=== PATIENT | female | born 1970 | race Caucasian/White ===

== ENCOUNTER 2019-10-21 15:04 | Emergency (ER) | payer BC ==
--- NOTE | 2019-10-21 16:16 | EDM.PDOC ---
ED HPI GENERAL MEDICAL PROBLEM - General Chief Complaint: Chest Pain Stated Complaint: PAIN IN RT SIDE RIBS, BLOATING Time Seen by Provider: 10/21/19 15:56 Source of Information: Reports: Patient History Limitations: Reports: No Limitations - History of Present Illness INITIAL COMMENTS - FREE TEXT/NARRATIVE: Patient presents describing a variety of painful areas likely secondary to some type of unwitnessed syncope/falling event tonight of October 17 into October 18. She has been treated for hypertension and has been on lisinopril for approximately one month. Her blood pressure was not completely controlled and she is now taking a double dose. When she awoke night into Tuesday morning, she felt dizzy and off balance and her pressure by home measurements at that time wa s 77 systolic. She does not recall what her pulse rate might of been. Because of how she felt, she stopped taking any additional lisinopril. She previously was on hydrochlorothiazide as her antihypertensive but has not used that since June of this year. Duration: Day(s): (3) Location: Reports: Face, Chest, Pelvis Quality: Reports: Ache, Dull Severity: Moderate Improves with: Reports: None Worsens with: Reports: Movement Associated Symptoms: Reports: No Other Symptoms - Related Data Allergies Allergy/AdvReac Type Severity Reaction Status Date / Time No Known Allergies Allergy Verified 10/21/19 16:15 Home Meds: Home Meds Adalimumab [Humira Pen] 1 injection SQ ASDIRECTED 10/21/19 [History] Lisinopril/Hydrochlorothiazide [Lisinopril-Hctz 20-12.5 mg Tab] 1 tab PO DAILY 10/21/19 [History] ED ROS GENERAL - Review of Systems Review Of Systems: See Below Constitutional: Reports: No Symptoms HEENT: Reports: Other (Left periorbital minor pain and bruising.) Respiratory: Reports: No Symptoms Cardiovascular: Reports: No Symptoms, Chest Pain (Pain on palpation over right lower lateral and anterior ribs.) GI/Abdominal: Reports: Abdominal Pain Musculoskeletal: Reports: Other (Right chest wall pain) Skin: Reports: Other (Right hip region ecchymosis.) ED EXAM, UPPER BACK/NECK PAIN - Physical Exam Exam: See Below Exam Limited By: No Limitations General Appearance: Alert Head Exam: Facial Ecchymosis Neck Exam: Full Range of Motion GI/Abdominal: Guarding, Tender. No: Rigid, Rebound Back Exam: No: CVA Tenderness (R), Vertebral Tenderness EKG INTERPRETATION EKG Date: 10/21/19 Time: 16:28 Rhythm: NSR Rate (Beats/Min): 73 [place]: Normal P-Wave: Present QRS: Normal ST-T: Normal QT: Normal Comparison: NA - No Prior EKG Course - Vital Signs Last Recorded V/S: Last Vital Signs Temp 36.3 C 10/21/19 16:32 Pulse 83 10/21/19 16:32 Resp 20 10/21/19 16:32 BP 154/97 H 10/21/19 16:32 Pulse Ox 100 10/21/19 16:32 - Orders/Labs/Meds Orders: Active Orders 24 hr Category Date Time Status EKG Documentation Completion [RC] ASDIRECTED Care 10/21/19 16:15 Active Ribs 2V w Chest Rt [CR] Stat Exams 10/21/19 16:13 Taken EKG 12 Lead [EK] Routine Ther 10/21/19 16:14 Ordered Labs: Laboratory Tests 10/21/19 10/21/19 Range/Units 16:25 16:25 WBC 5.5 (4.5-11.0) K/uL RBC 3.62 (3.30-5.50) M/uL Hgb 12.1 (12.0-15.0) g/dL Hct 34.0 L (36.0-48.0) % MCV 94 (80-98) fL MCH 33 H (27-31) pg MCHC 36 (32-36) % Plt Count 257 (150-400) K/uL Neut % (Auto) 55 (36-66) % Lymph % (Auto) 31 (24-44) % [place] % (Auto) 12 H (2-6) % Eos % (Auto) 2 (2-4) % Baso % (Auto) 1 (0-1) % Sodium 137 L (140-148) mmol/L Potassium 4.2 (3.6-5.2) mmol/L Chloride 102 (100-108) mmol/L Carbon Dioxide 30 (21-32) mmol/L Anion Gap 9.2 (5.0-14.0) mmol/L BUN 16 (7-18) mg/dL Creatinine 0.7 (0.6-1.0) mg/dL Est Cr Clr Drug Dosing 95.58 mL/min Estimated GFR (MDRD) > 60 (>60) Glucose 89 (74-106) mg/dL Calcium 8.3 L (8.5-10.1) mg/dL Total Bilirubin 0.4 (0.2-1.0) mg/dL AST 20 (15-37) U/L ALT 29 (12-78) U/L Alkaline Phosphatase 39 L (46-116) U/L Total Protein 6.8 (6.4-8.2) g/dL Albumin 3.6 (3.4-5.0) g/dL Globulin 3.2 (2.3-3.5) g/dL Albumin/Globulin Ratio 1.1 L (1.2-2.2) - Radiology Interpretation Free Text/Narrative:: X-ray of right ribs with AP chest view ordered and reviewed by me shows no evidence of fracture or other acute change. - Re-Assessments/Exams Free Text/Narrative Re-Assessment/Exam: 10/21/19 19:09 I reviewed lab and imaging findings with the patient which are unremarkable. I discussed that she has sustained soft tissue contusions as well as good contusions from her recent fall. She thinks that it's possible she might have accidentally used her 's lisinopril dose at bedtime instead of her ears. He takes a much higher dose although she didn't elaborate on the milligrams strength. She's had no return of lightheaded symptoms. I recommend restarting her lisinopril but take one tablet daily until review with primary care team. Ice packs to painful areas 20 minutes on and off. Ibuprofen 800 mg 3 times daily for the next week is reasonable. I'm not suspicious for any intra-abdominal organ injury based on history, exam, lab findings. Reassurance was provided. Feeling worse in anyway should return here Departure - Departure Time of Disposition: 17:46 Disposition: Home, Self-Care 01 Condition: Good Clinical Impression: Contusion of ribs Qualifiers: Encounter type: initial encounter Laterality: right Qualified Code(s): S20.211A - Contusion of right front wall of thorax, initial encounter Contusion of hip, right Qualifiers: Encounter type: initial encounter Qualified Code(s): S70.01XA - Contusion of right hip, initial encounter Periorbital contusion of left eye Qualifiers: Encounter type: initial encounter Qualified Code(s): S05.12XA - Contusion of eyeball and orbital tissues, left eye, initial encounter - Discharge Information Instructions: Contusion, [id number] Referrals: PCP,None [Primary Care Provider] - Forms: ED Department Discharge Additional Instructions: Cold packs to painful areas 20 minutes off and on. You could continue ibuprofen 800 mg 3 times a day. Use tramadol as prescribed cautiously so you do not become too sleepy and increase her risk of falling. Try to maintain flexibility/mobility to the extent possible. Contact your primary care team about possibly wearing a heart rate monitor at home. Be very cautious about prescription medication dosing, make sure that the medication you are taking are yours and no one else's. Return to ER if feeling worse in anyway. Restart your lisinopril but take only one tablet per day for now until you contact your primary care team. Sepsis Event Note (ED) - Focused Exam Vital Signs: Vital Signs Temp Pulse Resp BP Pulse Ox 10/21/19 16:32 36.3 C 83 20 154/97 H 100 10/21/19 15:52 36.3 C 83 20 154/97 H 100 - My Orders Last 24 Hours: My Active Orders 10/21/19 16:13 Ribs 2V w Chest Rt [CR] Stat 10/21/19 16:14 EKG 12 Lead [EK] Routine 10/21/19 16:15 EKG Documentation Completion [RC] ASDIRECTED - Assessment/Plan Last 24 Hours: My Active Orders 10/21/19 16:13 Ribs 2V w Chest Rt [CR] Stat 10/21/19 16:14 EKG 12 Lead [EK] Routine 10/21/19 16:15 EKG Documentation Completion [RC] ASDIRECTED
--- NOTE | 2019-10-22 12:44 | CR ---
Ribs 2V w Chest Rt CLINICAL HISTORY: Injury FINDINGS: There is no acute fracture within the ribs. No destructive changes are seen. There is no focal pleural thickening or obvious effusion. There is a long smooth dextroscoliosis IMPRESSION: Negative right ribs.
== END 2019-10-21 17:57 | disposition home or self-care (01) ==
LOC: JP.ED 15:04
DX: S20.211A Contusion of right front wall of thorax, initial encounter (principal); S70.01XA Contusion of right hip, initial encounter; S05.12XA Contusion of eyeball and orbital tissues, left eye, initial encounter; I10 Essential (primary) hypertension; Z79.899 Other long term (current) drug therapy; W01.0XXA Fall on same level from slipping, tripping and stumbling without subsequent striking against object, initial encounter
CPT/HCPCS: 36415; 71101-26-RT; 71101-RT; 80053; 85025; 93005; 99284-25